=== PATIENT | female | born 1985 | race Caucasian/White ===

== ENCOUNTER 2020-09-02 09:40 | Outpatient (CLI) | payer MEDICAID ==
[2020-09-02 10:25] LABS: APPEARANCE,URINE CLEAR; BILIRUBIN,URINE NEGATIVE (NEGATIVE); COLOR,URINE YELLOW; GLUCOSE, URINE NEGATIVE (NEGATIVE); KETONES,URINE NEGATIVE (NEGATIVE); LEUKOCYTE ESTERASE,URINE NEGATIVE (NEGATIVE); NITRITE,URINE NEGATIVE (NEGATIVE); PROTEIN,URINE NEGATIVE (NEGATIVE); URINE SPECIFIC GRAVITY 1.012; UROBILINOGEN,URINE NEGATIVE mg/dL (<2.0)
[2020-09-02 10:46] LABS: URINE AMPHETAMINES SCREEN NEGATIVE; URINE BARBITURATES SCREEN NEGATIVE; URINE BENZODIAZEPINES SCREEN NEGATIVE; URINE COCAINE SCREEN NEGATIVE; URINE MARIJUANA (THC) SCREEN NEGATIVE; URINE METHADONE SCREEN NEGATIVE; URINE PHENCYCLIDINE SCREEN NEGATIVE
--- NOTE | 2020-09-02 11:10 | Non Stress Test Report ---
Non Stress Test Datetime Report Generated by CPN: 09/02/2020 11:10 DEMOGRAPHIC EGA NST: 38.0 INDICATION Indication for Study (NST) Other: LC - IUP at 38.0 VITAL SIGNS Temperature - NST: 98.0 Pulse - NST: 85 RESP - NST: 20 NBPSYS NST: 118 NBPDIA NST: 66 MONITORING Monitor Explained: Monitor Explained; Test Explained; Patient Verbalized Understanding Time on Monitor: 09/02/2020 09:55 Time off Monitor: 09/02/2020 10:46 NST Duration: 51 NST INTERVENTIONS NST Interventions: PO Hydration Physician Notified NST: A. Danielle, CNM BABY A: [id number] BABY A Movement : Present Contraction Frequency : 4-6 FHR Baseline : 125 Accelerations : 15X15 Decelerations : None Variability : Moderate 6-25bpm NST Review: Meets Criteria for Reactive NST NST Review and Verified By : BRAVO Pradhan Results: Reactive NST REPORT Report Trigger: Send Report
== END 2020-09-02 11:02 | disposition home or self-care (01) ==
LOC: LC 09:40
PROVIDERS: ATTEND Student in an Organized Health Care Education/Training Program
DX: O47.1 False labor at or after 37 completed weeks of gestation (principal); O09.513 Supervision of elderly primigravida, third trimester; Z3A.38 38 weeks gestation of pregnancy
CPT/HCPCS: 59025; 80307; 81005

== ENCOUNTER 2020-09-02 19:27 | Inpatient (IN) | payer MEDICAID ==
[2020-09-02 20:06] LABS: APPEARANCE,URINE CLOUDY; BILIRUBIN,URINE NEGATIVE (NEGATIVE); COLOR,URINE RED; GLUCOSE, URINE NEGATIVE (NEGATIVE); KETONES,URINE NEGATIVE (NEGATIVE); LEUKOCYTE ESTERASE,URINE LARGE (NEGATIVE); NITRITE,URINE NEGATIVE (NEGATIVE); PROTEIN,URINE 100 mg/dL (NEGATIVE); URINE SPECIFIC GRAVITY 1.023; UROBILINOGEN,URINE NEGATIVE mg/dL (<2.0)
[2020-09-02] MEDS ORDERED: PENICILLIN G POTASSIUM 5,000,000 UNIT in DEXTROSE 5%-WATER 100 ML IV ONE (20:10)
[2020-09-02] MEDS ORDERED: RINGERS SOLUTION,LACTATED 1,000 ML IV ONE (20:10)
[2020-09-02] MEDS ORDERED: RINGERS SOLUTION,LACTATED 1,000 ML IV PRN (20:10)
--- NOTE | 2020-09-02 20:18 | Admission Physical ---
Datetime Report Generated by CPN: 09/02/2020 20:17 CURRENT ADMISSION Chief Complaint: Uterine Contractions; Suspected Ruptured Membranes Indication for Induction: Not Applicable Admit Impression : Term, Intrauterine ; Active Labor; Ruptured Membranes Admit Plan: Admit to Unit; Initiate Labor Protocol ALLERGIES Medication Allergies: No Medication Allergies: No Known Allergies (09/02/2020) Latex: No Latex Allergies OBSTETRICAL HISTORY EDC: 09/16/2020 00:00 : 1 Para: 0 Term: 0 : 0 SAB: 0 IAB: 0 Livin Gestational Diabetes: No Rh Sensitization: No Incompetent Cervix: No ROBERT: No Infertility: No ART Treatment: No Uterine Anomaly: No IUGR: No Hx Previous C/S: No Macrosomia: No Hx Loss/Stillborn: No PIH: No Hx : No Placenta Previa/Abruption: No Depression/PP Depression: No PTL/PROM: No Post Hemorrhage: No Obstetrical History Comments: G1: current- AMA GBS + smoked THC abd cigs quit 06/21 SEE RECORDS Alcohol: No Marijuana : No Cocaine: No Other Illicit Drugs: No Cigarettes: Former Smoker. [id number] Advised to Stop: Yes MEDICAL HISTORY Diabetes: No Blood Transfusion: No Pulmonary Disease (Asthma, TB): No Breast Disease: No Hypertension: No Collar Tailor Surgery: No Heart Disease: No Hosp/Surgery: No Autoimmune Disorder: No Anesthetic Complications: No Kidney Disease: No Abnormal Pap Smear: No Neuro/Epilepsy: No Psychiatric Disorders: No Other Medical Diseases: No Hepatitis/Liver Disease: No Significant Family History: No Varicosities/Phlebitis: No Trauma/Violence : No Thyroid Dysfunction: No Medical History Comments: appendectomy- 11 yo INFECTIOUS HISTORY Gonorrhea: No Genital Herpes: No Chlamydia: No Tuberculosis: No Syphilis: No Hepatitis: No HIV/AIDS Exposure: No Rash or Viral Illness: No HPV: Yes Infectious History Comments: HPV PHYSICAL EXAM General: Normal HEENT: Normal Neurologic: Normal Thyroid: Deferred Heart: Normal Lungs: Normal Breast: Deferred Back: Normal Abdomen: Normal Genitourinary Exam: Normal Extremities: Normal DTRs: Normal Pelvic Type: Adequate Vital Signs: Reviewed VAGINAL EXAM Dilatation: 1 Effacement: 100 Station: 0 Contraction Comments: q2-3 MEMBRANES Membranes: Ruptured Amniotic Fluid Color: Clear FETUS A EGA: 38.0 Monitoring: External US FHR- Baseline: 145 Accelerations: 15X15 Decelerations: None FHR Category: Category I Presentation: Vertex Admit Comment: 34yo at 38+0ega presents for possible SROM. Actimprom positive. Admit for SROM clear fluid at 1900 . c/b AMA. Smoker - cig and THC. Boy - desires circ. GBS pos - PCN ordered. Admit to labor and delivery for early active labor and SROM. PCN ordered. Epidural upon patient request PLANS FOR LABOR AND DELIVERY Pain Management: Epidural Feeding Preference: Breast Circumcision: Yes INFORMED CONSENT Informed Consent Obtained: Vaginal Delivery; Risks, Benefits and Alternatives Discussed Signature: with User ID: [email or web address]
[2020-09-02] MEDS ORDERED: NALBUPHINE HCL INJ 10 MG/1 ML AMPULE INJ ONE (20:19)
[2020-09-02] MEDS ORDERED: LIDOCAINE 1% INJ-PF (10 MG/ML) 30 ML SDV ONE (20:21)
[2020-09-02] MEDS ORDERED: MISOPROSTOL 0.2 MG TABLET ONE (20:21)
[2020-09-02] MEDS ORDERED: OXYTOCIN/0.9 % SODIUM CHLORIDE 30 UNIT/500 ML RTUINJ ONE (20:21)
[2020-09-02] MEDS ORDERED: PENICILLIN G-K 5 MILLION UNIT VIAL ONE ×2 (20:21→23:57)
[2020-09-02] MEDS ORDERED: OXYTOCIN 10 UNIT/ML VIAL ONE (20:21)
[2020-09-02 20:26] LABS: URINE AMPHETAMINES SCREEN NEGATIVE; URINE BARBITURATES SCREEN NEGATIVE; URINE BENZODIAZEPINES SCREEN NEGATIVE; URINE COCAINE SCREEN NEGATIVE; URINE MARIJUANA (THC) SCREEN NEGATIVE; URINE METHADONE SCREEN NEGATIVE; URINE PHENCYCLIDINE SCREEN NEGATIVE
[2020-09-02] MEDS ORDERED: NALBUPHINE HCL INJ 10 MG/1 ML AMPULE ONE (20:29)
[2020-09-02 20:58] LABS: ABSOLUTE LYMPHOCYTES (AUTO) 1.8 10^3/uL (0.5-4.7); HEMATOCRIT 40.1 % (36.0-47.0); TOTAL CELLS COUNTED % (AUTO) 100 %
[2020-09-02 21:04] LABS: ABSOLUTE BASOPHILS # (AUTO) 0.1 10^3/uL (0.0-0.2); ABSOLUTE EOSINOPHILS # (AUTO) 0.1 10^3/uL (0.0-0.6); ABSOLUTE MONOCYTES (AUTO) 1.2 10^3/uL (0.1-1.4); ABSOLUTE NEUT (AUTO) 13.8 10^3/uL (1.7-8.2); BASOPHILS % (AUTO) 0.7 % (0-2); EOSINOPHILS % (AUTO) 0.5 % (0-6); HEMOGLOBIN 14.4 g/dL (12.0-15.5); LYMPHOCYTES % (AUTO) 10.6 % (13-45); MEAN CORPUSCULAR HEMOGLOBIN 34.3 pg (27.0-33.4); MEAN CORPUSCULAR VOLUME 95 fl (80-97); RED BLOOD COUNT 4.21 10^6/uL (3.72-5.28); RED CELL DISTRIBUTION WIDTH 13.8 % (11.5-14.0); SEGMENTED NEUTROPHILS % (AUTO) 81.2 % (42-78)
[2020-09-02 21:28] LABS: PLATELET COUNT 145 10^3/uL (150-450)
[2020-09-02] MEDS ORDERED: EPHEDRINE SULFATE INJ 50 MG/1 ML AMPULE ONE (21:46)
[2020-09-02] MEDS ORDERED: FENTANYL/BUPIVACAINE/NS/PF 300 MCG/150 ML RTUINJ EPI ONE (21:47)
[2020-09-02] MEDS ORDERED: ROPIVACAINE HCL 0.2% INJ/PF (2 MG/ML) 20 ML SDV ONE (21:47)
[2020-09-03] MEDS: PENICILLIN G POTASSIUM 2,500,000 UNIT in DEXTROSE 5%-WATER 50 ML IV SCH ×2 (00:06→21:49)
[2020-09-03] MEDS ORDERED: MAG HYDROX/AL HYDROX/SIMETH SUSP 30 ML UDCUP ONE (00:30)
[2020-09-03] MEDS ORDERED: MAG HYDROX/AL HYDROX/SIMETH SUSP 30 ML UDCUP PO ONE (00:36)
[2020-09-03] MEDS ORDERED: MAGNESIUM HYDROXIDE SUSP 30 ML UDCUP PO PRN (03:56)
[2020-09-03] MEDS ORDERED: PROMETHAZINE HCL 25 MG TABLET PO PRN (03:56)
[2020-09-03] MEDS ORDERED: OXYTOCIN/0.9 % SODIUM CHLORIDE 30 UNIT/500 ML RTUINJ IV PRN (03:56)
[2020-09-03] MEDS ORDERED: ZOLPIDEM TARTRATE 5 MG TABLET PO PRN (03:56)
[2020-09-03] MEDS ORDERED: MEASLES,MUMPS&RUBELLA VACC/PF 0.5 ML VIAL SUBCUT PRN (03:56)
[2020-09-03] MEDS ORDERED: PSEUDOEPHEDRINE HCL 30 MG TABLET PO PRN (03:56)
[2020-09-03] MEDS ORDERED: BENZOCAINE/MENTHOL AEROSOL SPRAY 56 ML TOP PRN (03:56)
[2020-09-03] MEDS ORDERED: GLYCERIN/WITCH HAZEL LEAF 1 EACH MED..WIPE TP PRN (03:56)
[2020-09-03] MEDS ORDERED: DIPH/PERTUSS(ACELL)/TETANUS VAC/PF 0.5 ML SYR (>=10YO) IM PRN (03:56)
[2020-09-03] MEDS ORDERED: NA PHOS,M-B/NA PHOS,DI-BA (ADULT) 133 ML ENEMA PR PRN (03:56)
[2020-09-03] MEDS ORDERED: DIBUCAINE 1% OINTMENT 28 GM TP PRN (03:56)
[2020-09-03] MEDS ORDERED: PROMETHAZINE HCL 25 MG SUPP.RECT PR PRN (03:56)
[2020-09-03] MEDS ORDERED: ACETAMINOPHEN WITH CODEINE #3 TABLET PO PRN ×2 (03:56)
[2020-09-03] MEDS ORDERED: ACETAMINOPHEN 325 MG TABLET PO PRN (03:56)
[2020-09-03] MEDS ORDERED: DIPHENHYDRAMINE HCL 25 MG CAPSULE PO PRN (03:56)
[2020-09-03] MEDS ORDERED: PROMETHAZINE HCL INJ 25 MG/1 ML VIAL IV PRN (03:56)
[2020-09-03] MEDS ORDERED: IBUPROFEN 800 MG TABLET ONE (05:46)
[2020-09-03] MEDS: IBUPROFEN 800 MG TABLET PO SCH ×3 (05:47→22:05)
[2020-09-03] MEDS: PRENATAL VITAMIN W DHA CAPSULE PO SCH (09:55)
[2020-09-03] MEDS: FERROUS SULFATE 325 MG TABLET PO SCH ×2 (09:55→18:15)
[2020-09-03] MEDS: SENNOSIDES/DOCUSATE 8.6-50 MG 1 EACH TABLET PO SCH (09:55)
[2020-09-03] MEDS: DOCUSATE SODIUM 100 MG CAPSULE PO SCH ×2 (09:55→18:15)
[2020-09-03] MEDS: FAMOTIDINE 20 MG TABLET PO SCH ×2 (09:55→22:05)
[2020-09-04] MEDS: IBUPROFEN 800 MG TABLET PO SCH ×3 (05:34→21:35)
[2020-09-04 09:18] LABS: HEMATOCRIT 38.1 % (36.0-47.0); HEMOGLOBIN 13.4 g/dL (12.0-15.5); MEAN CORPUSCULAR HEMOGLOBIN 34.1 pg (27.0-33.4); MEAN CORPUSCULAR HGB CONC 35.2 g/dL (32.0-36.0); MEAN CORPUSCULAR VOLUME 97 fl (80-97); PLATELET COUNT 122 10^3/uL (150-450); RED BLOOD COUNT 3.93 10^6/uL (3.72-5.28); WHITE BLOOD COUNT 16.3 10^3/uL (4.0-10.5)
[2020-09-04] MEDS: DOCUSATE SODIUM 100 MG CAPSULE PO SCH ×2 (10:12→17:55)
[2020-09-04] MEDS: FAMOTIDINE 20 MG TABLET PO SCH ×2 (10:13→21:35)
[2020-09-04] MEDS: PRENATAL VITAMIN W DHA CAPSULE PO SCH (10:13)
[2020-09-04] MEDS: FERROUS SULFATE 325 MG TABLET PO SCH ×2 (10:13→17:55)
[2020-09-04] MEDS: SENNOSIDES/DOCUSATE 8.6-50 MG 1 EACH TABLET PO SCH (10:13)
--- NOTE | 2020-09-04 11:07 | PDOC PROGRESS REPORT ---
Subjective-OB Progress Note for:: 09/04/20 Subjective: reports bleeding slowing,pain controlled with current meds. denies needs Physical Exam (OB) Vital Signs: Temp Pulse Resp BP Pulse Ox 98.1 F 75 18 113/66 100 09/04/20 08:04 09/04/20 07:21 09/04/20 07:21 09/04/20 07:21 09/04/20 07:21 Intake & Output 09/03/20 09/04/20 09/05/20 06:59 06:59 06:59 Weight 72.4 kg - Maternal Morbidity 59. Maternal Morbidity (serious complications experinced by the mother associated with labor and delivery: None of the above - Abdomen Description: Soft, Round Hernia Present: No Fundal Description: Firm, Midline Fundal Height: u/u - u/2 - Abdominal Distension: No distension Tenderness: Nontender - Extremities Lower extremities: Elba's sign - neg Calf: Normal, Nontender Objective-Diagnostic Laboratory: 09/04/20 08:44 09/04/20 08:44 WBC 16.3 H RBC 3.93 Hgb 13.4 Hct 38.1 MCV 97 MCH 34.1 H MCHC 35.2 RDW 14.0 Plt Count 122 L Assessment and Plan(PN) - Time Spent with Patient Time with patient: Less than 15 minutes Medications reviewed and adjusted accordingly: Yes - Disposition Anticipated Discharge Disposition: Home, Self Care Anticipated Discharge Timeframe: within 24 hours
[2020-09-05] MEDS: IBUPROFEN 800 MG TABLET PO SCH (05:36)
[2020-09-05 08:39] VITALS: BP 136/85
[2020-09-05] MEDS: DOCUSATE SODIUM 100 MG CAPSULE PO SCH (09:06)
[2020-09-05] MEDS: PRENATAL VITAMIN W DHA CAPSULE PO SCH (09:06)
[2020-09-05] MEDS: FERROUS SULFATE 325 MG TABLET PO SCH (09:06)
[2020-09-05] MEDS: SENNOSIDES/DOCUSATE 8.6-50 MG 1 EACH TABLET PO SCH (09:06)
[2020-09-05] MEDS: FAMOTIDINE 20 MG TABLET PO SCH (09:07)
--- NOTE | 2020-09-05 10:02 | PDOC DISCHARGE SUMMARY ---
Impression - Admit/DC Date/PCP Admission Date/Primary Care Provider: 09/02/20 20:18 REJI BALTAZAR MD Discharge Date: 09/05/20 - PP Day #2, doing well, no complaints, desires BTL pp. O+, Rubella Immune - Discharge Diagnosis (1) Active labor at term Is this a current diagnosis for this admission?: Yes (2) Gestational thrombocytopenia Is this a current diagnosis for this admission?: Yes (3) Spontaneous rupture of membranes Is this a current diagnosis for this admission?: Yes (4) Vaginal delivery Is this a current diagnosis for this admission?: Yes - Additional Information Resuscitation Status: Full Code Discharge Diet: As Tolerated, Regular Referrals: [facility] [Provider Group] (Call to make 4week follow up) Prescriptions: Ibuprofen [Motrin 800 mg Tablet] 800 mg PO Q8 #60 tablet Home Medications: Pnv No.95/Ferrous Fum/Folic AC [ Caplet] 1 tab PO DAILY 09/02/20 Ibuprofen [Motrin 800 mg Tablet] 800 mg PO Q8 #60 tablet 09/05/20 HPI Reason(s) for Admission: Onset of Labor Procedures: Ultrasound Intrapartum Procedure(s): Spontaneous Vaginal Delivery Complication(s): Laceration-Perineal Laceration-Degree: 2nd Hospital Course 59. Maternal Morbidity (serious complications experinced by the mother associated with labor and delivery: None of the above Results Laboratory Results: WBC 16.3 10^3/uL (4.0-10.5) H 09/04/20 08:44 RBC 3.93 10^6/uL (3.72-5.28) 09/04/20 08:44 Hgb 13.4 g/dL (12.0-15.5) 09/04/20 08:44 Hct 38.1 % (36.0-47.0) 09/04/20 08:44 MCV 97 fl (80-97) 09/04/20 08:44 MCH 34.1 pg (27.0-33.4) H 09/04/20 08:44 MCHC 35.2 g/dL (32.0-36.0) 09/04/20 08:44 RDW 14.0 % (11.5-14.0) 09/04/20 08:44 Plt Count 122 10^3/uL (150-450) L 09/04/20 08:44 Lymph % (Auto) 10.6 % (13-45) L 09/02/20 20:20 [place] % (Auto) 7.0 % (3-13) 09/02/20 20:20 Eos % (Auto) 0.5 % (0-6) 09/02/20 20:20 Baso % (Auto) 0.7 % (0-2) 09/02/20 20:20 Absolute Neuts (auto) 13.8 10^3/uL (1.7-8.2) H 09/02/20 20:20 Absolute Lymphs (auto) 1.8 10^3/uL (0.5-4.7) 09/02/20 20:20 Absolute Monos (auto) 1.2 10^3/uL (0.1-1.4) 09/02/20 20:20 Absolute Eos (auto) 0.1 10^3/uL (0.0-0.6) 09/02/20 20:20 Absolute Basos (auto) 0.1 10^3/uL (0.0-0.2) 09/02/20 20:20 Seg Neutrophils % 81.2 % (42-78) H 09/02/20 20:20 Urine Color RED 09/02/20 19:35 Urine Appearance CLOUDY 09/02/20 19:35 Urine pH 5.0 (5.0-9.0) 09/02/20 19:35 Ur Specific [place] 1.023 09/02/20 19:35 Urine Protein 100 mg/dL (NEGATIVE) H 09/02/20 19:35 Urine Glucose (UA) NEGATIVE mg/dL (NEGATIVE) 09/02/20 19:35 Urine Ketones NEGATIVE mg/dL (NEGATIVE) 09/02/20 19:35 Urine Blood LARGE (NEGATIVE) H 09/02/20 19:35 Urine Nitrite NEGATIVE (NEGATIVE) 09/02/20 19:35 Urine Bilirubin NEGATIVE (NEGATIVE) 09/02/20 19:35 Urine Urobilinogen NEGATIVE mg/dL (<2.0) 09/02/20 19:35 Ur Leukocyte Esterase LARGE (NEGATIVE) H 09/02/20 19:35 Urine Ascorbic Acid 20 (NEGATIVE) H 09/02/20 19:35 Membranes Rupture POSITIVE (NEGATIVE) H 09/02/20 19:40 Urine Opiates Screen NEGATIVE 09/02/20 19:35 Urine Methadone Screen NEGATIVE 09/02/20 19:35 Ur Barbiturates Screen NEGATIVE 09/02/20 19:35 Ur Phencyclidine Scrn NEGATIVE 09/02/20 19:35 Ur Amphetamines Screen NEGATIVE 09/02/20 19:35 U Benzodiazepines Scrn NEGATIVE 09/02/20 19:35 Urine Cocaine Screen NEGATIVE 09/02/20 19:35 U Marijuana (THC) Screen NEGATIVE 09/02/20 19:35 Blood Type O POSITIVE 09/02/20 20:20 Antibody Screen NEGATIVE 09/02/20 20:20 Plan Plan of Treatment: d/c home. F/up at [facility] in 2 wks for PP BTL consultation Time Spent: Less than 30 Minutes
--- NOTE | 2020-09-06 14:56 | Delivery Summary ---
Del Sum A-C Datetime Report Generated by CPN: 09/06/2020 14:56 DELIVERY PERSONNEL DELIVERY PERSONNEL: [id number] Delivery Doctor:: Fidelia Rae MD SCIENTIFIC LABORATORY SUPERVISOR:: René Urena CRNA Labor and Delivery Nurse:: Leesa Hernandez RNeconomics instructor Nurse:: Oneida Ponce RN [employer] Piece Consultant/TRACK REPAIR SUPERVISOR: Hortensia Torres, ST MATERNAL INFORMATION Delivery Anesthesia: Epidural Medications After Delivery: Pitocin 30 Units in 500ml NS/D5W Delivery QBL: 100 Maternal Complications: None Provider Comments: VMI delivered in MALIKA presentation. No nuchal cord. Shoulders and body delivered without difficulty. Short umbilical cord noted. Cord doubly clamped and cut and to maternal abdomen. Placenta delivered spontaneously intact. FF at U. 2nd degree perineal laceration repaired in usual fashion. Good hemostasis. Mother and baby stable upon provider leaving the room. LABOR SUMMARY EDC: 09/16/2020 00:00 No. Babies in Womb: 1 Attempted: No Labor Anesthesia: Epidural LABOR INFORMATION Reason for Induction: Not Applicable Onset of Labor: 09/02/2020 19:00 Complete Dilatation: 09/03/2020 01:34 Oxytocin: N/A Group B Beta Strep: Positive Antibiotics # of Doses: 2 Antibiotics Time of Last Dose: 09/03/2020 00:06 Name of Antibiotic Given: PCN Steroids Given: None Reason Steroids Not Administered: Not Applicable MEMBRANES Membranes Rupture Method: Spontaneous Rupture of Membranes: 09/02/2020 19:00 Length of Rupture (hr): 8.70 Amniotic Fluid Color: Clear Amniotic Fluid Amount: Small Amniotic Fluid Odor: Normal STAGES OF LABOR Stage 1 hr: 6 Stage 1 min: 34 Stage 2 hr: 2 Stage 2 min: 8 Stage 3 hr: 0 Stage 3 min: 3 Total Time in Labor hr: 8 Total Time in Labor min: 45 VAGINAL DELIVERY Episiotomy: None Laceration #1: Perineal Laceration Extension #1: Second Degree Laceration Repair: Yes Sponge Count Correct: Yes Sharps Count Correct: Yes CSECTION DELIVERY Primary Indication: N/A Secondary Indication: N/A CSection Incidence: N/A Labor: N/A Elective: N/A CSection Incision: N/A BABY A INFORMATION Delivery Date/Time: 09/03/2020 03:42 Method of Delivery: Vaginal Method of Delivery: Vaginal Method of Delivery: Vaginal Nurse Controlled Delivery: No Born in Route : No : N/A Forceps: N/A Vacuum Extraction: N/A Shoulder Dystocia : No PRESENTATION/POSITION BABY A Presentation: Cephalic Presentation: Cephalic Cephalic Presentation: Vertex Vertex Position: Left Occipital Anterior Breech Presentation: N/A PLACENTA INFORMATION BABY A Placenta Delivery Time : 09/03/2020 03:45 Placenta Method of Delivery: Spontaneous Placenta Method of Delivery: Spontaneous Placenta Status: Delivered SCORES BABY A Heart Rate 1 min: >100 bpm Resp Effort 1 min: Good Cry Reflex Irritability 1 min: Cough or Sneeze or Pulls Away Muscle Tone 1 min: Active Motion Color 1 min: Blue/Pale Resuscitation Effort 1 min: Tactile Stimulation SCORE 1 MIN: 8 Heart Rate 5 min: >100 bpm Resp Effort 5 min: Good Cry Reflex Irritability 5 min: Cough or Sneeze or Pulls Away Muscle Tone 5 min: Active Motion Color 5 min: Body [place], Extremities Blue Resuscitation Effort 5 min: Tactile Stimulation SCORE 5 MIN: 9 INFORMATION BABY A Gestational Age at Delivery: 38.1 Gestational Status: Early Term- 37- 38.6 Weeks Infant Outcome : Liveborn Infant Condition : Stable Infant Sex: Male Infant Sex: Male Infant Sex: Male IDENTIFICATION BABY A Verification Date/Time: 09/03/2020 04:20 ID Band Number: [id number] Mother's Name Verified: Yes Infant RN Verifying : rn franciscoann Additional Verifying Personnel: rn bindu WEIGHT/LENGTH BABY A Birthweight (gm): 2870 Weight (lb): 6 Weight (oz): 5 Infant Length (in): 19.00 Length (cm): 48.26 CORD INFORMATION BABY A No. Cord Vessels: 3 Nuchal Cord : N/A Nuchal Cord- Other: short cord Cord Blood Taken: Yes-For Eval (Mom's Blood Type - or O+) Infant Suction: None ASSESSMENT BABY A Complications- Other: terminal mec Physical Findings at Delivery: Caput Succedaneum; Molding of the Head Physical Findings- Other: see initial nursery assessment Respirations: Appears Normal Skin to Skin: Yes Tankroom Worker/ALS Called : No Infant Care By: Tung ponce RN Transferred To: Remains with Mother BABY B INFORMATION : N/A SIGNATURES Signature: with User ID: [email or web address]
== END 2020-09-05 11:52 | disposition home or self-care (01) | DRG 806 ==
LOC: LC 19:27 → LR 20:18 → 2S 09-03 06:30
PROVIDERS: ADMIT Student in an Organized Health Care Education/Training Program; ATTEND Student in an Organized Health Care Education/Training Program
PROC: 10E0XZZ Delivery of Products of Conception, External Approach (ICD-10-PCS; principal; 2020-09-03)
PROC: 0KQM0ZZ Repair Perineum Muscle, Open Approach (ICD-10-PCS; 2020-09-03)
DX: O98.82 Other maternal infectious and parasitic diseases complicating childbirth (principal); O99.324 Drug use complicating childbirth; Z37.0 Single live birth; O99.12 Other diseases of the blood and blood-forming organs and certain disorders involving the immune mechanism complicating childbirth; O77.0 Labor and delivery complicated by meconium in amniotic fluid; B95.1 Streptococcus, group B, as the cause of diseases classified elsewhere; D69.6 Thrombocytopenia, unspecified; O69.3XX0 Labor and delivery complicated by short cord, not applicable or unspecified; O70.1 Second degree perineal laceration during delivery; O99.334 Smoking (tobacco) complicating childbirth; F12.90 Cannabis use, unspecified, uncomplicated; Z87.891 Personal history of nicotine dependence; Z90.49 Acquired absence of other specified parts of digestive tract; Z86.19 Personal history of other infectious and parasitic diseases; Z3A.38 38 weeks gestation of pregnancy
CPT/HCPCS: 1967; 36415; 80307; 81005; 84112; 85025; 85027; 86592; 86850; 86900; 86901; 94760; J2300; J2540; J2590; J2795; J3010; J3490; J7060